=== PATIENT | female | born 1995 | race Caucasian/White ===

== ENCOUNTER 2024-09-21 03:30 | Inpatient (IN) | payer SELFPAY ==
[2024-09-21] VITALS (19 sets, daily range): BP systolic 118–180; BP diastolic 60–95; PULSE 72–99; RESP 15–16; TEMP 36.2–36.6; O2SAT 97–98; BMI 26.8
[2024-09-21 03:35] LABS: Basophils % 0.5 %; Eosinophils # 0.1 10^3/uL (0.0-0.8); Eosinophils % 1.5 %; Hematocrit 38.6 % (36-47); Lymphocytes # 2.1 10^3/uL (0.8-4.8); Lymphocytes % 26.9 %; Mean Corpuscular HGB Conc 32.4 g/dL (30-55); Mean Corpuscular Hemoglobin 28.9 pg (27-33); Mean Corpuscular Volume 89.4 fl (85-98); Mean Platelet Volume 9.7 fL (7.4-10.4); Monocytes # 0.8 10^3/uL (0.2-0.9); Monocytes % 10.2 %; Neutrophils # 4.74 10^3/uL (1.8-7.7); Neutrophils % 59.6 %; Nucleated Red Blood Cells % 0 %; Platelet Count 226 10^3/cmm (157-399); Red Blood Count 4.32 10^6/uL (3.85-5.65); Red Cell Distribution Width 20.6 % (12.1-15.1); White Blood Count 7.95 10^3/uL (3.29-11.43)
[2024-09-21] MEDS: lactated ringers 1,000 ML 999 ML IV (03:42)
[2024-09-21] MEDS: oxytocin 30 UNIT/500 ML BAG 600 UNIT IV (04:24)
--- NOTE | 2024-09-21 04:34 | PM.OPHPUD ---
Labor & Delivery H&P Update Date of Procedure: September 21, 2024 Date H&P Performed: 09/14/24 Admission Diagnosis: Active labor at 41 weeks gestation Planned procedure: Expectant management of labor and delivery
--- NOTE | 2024-09-21 04:35 | PM.DELIVERY ---
Delivery Note: Date of delivery: September 21, 2024 Pre-delivery diagnoses: IUP at 40 weeks 5 days gestation Insufficient care Procedure: Normal spontaneous vaginal delivery Delivering Physician: Juana Larsen MD Estimated blood loss (mL): 200 Pre-Delivery Course: The patient had late onset care starting at 34 weeks gestation at [facility]. labs: A+ antibody negative, hepatitis B nonreactive, hepatitis C nonreactive, HIV nonreactive, rubella immune, GC chlamydia negative, RPR nonreactive, UDS negative, Pap smear ASCUS, hemoglobin A1c 5.0, third trimester anatomy scan within normal limits, she passed her glucose tolerance test, GBS negative. Delivery: This is a 29-year-old G3, P2 at 40 weeks 5 days gestation who presented to labor and delivery in active labor at 7 cm dilated. The patient desired to get an epidural but her labor progressed rather precipitously. 20 minutes after the pt was 8cm, I was notified by nursing that the had already delivered. When I presented the cord was still attached and the was on the mother's chest. The cord was clamped and cut. The placenta was delivered grossly intact and normal to inspection. There were no lacerations. Mother and infant were doing well. weight 3470gms. Apgars 9 and 9. A&P PDMP PDMP Reviewed: Not Reviewed Coding Level of Care Code Acute Code for Chg Fwd
--- NOTE | 2024-09-21 06:22 | PC.NURSE ---
dfs notified due to patient being late to care.
--- OUTSIDE RECORDS SUMMARY | 2024-09-21 08:27 | XMS_ITS | Continuity of Care Document ---
Author Organization [facility] Flor Johnston, [facility] ([facility]) Address [address] [place] [address] Assessment No assessment recorded. Plan of Treatment Reminders Order Date Submit Date Provider Last Modified By Organization Details Last Modified Time Details Appointments None record ed. Lab None record ed. Referral None record ed. Procedures None record ed. Surgeries None record ed. Imaging None record ed. Medication Orders None record ed. Patient TargetsNo targets recorded. Patient InstructionsNo instructions recorded. Reason for Referral None Reported. Results Created Date Observation Date Name Description Value Unit Range Abnormal Flag Note LastModifiedBy Organization Detail LastModifiedTime 08/19/19 25 08/17/2024 US, obste tric, mater nal evalu ation + anato my No observ ation record ed. [email or web address] [facility] [address] [place], [address], 08/25/2024 17:47:37 09/15/19 25 09/10/2024 US, obste tric, follo w-up No observ ation record ed. [email or web address] Not Available 09/15 09:00:00 Result Notes None recorded. Problems Name Problem SNOMED Code Status Onset Date Resolution Date Notes Provider Name and Address Organization Details Recorded Time [id number] Active 025 [place] [facility] Problem Notes None recorded. Procedures Surgical History Date Name Laterality Status Provider Name and Address Organization Details Recorded Time 08/12/2024 Date of Last [facility] Sm[facility] 10:50:02 Imaging Results None recorded. Procedure Notes None recorded. Medical Equipment None Reported. Allergies No known drug allergies Vitals Date Recorded Body height Body mass index (BMI) Body weight Body temperature Oxygen saturation Oxygen saturation in Arterial blood by Pulse oximetry Heart rate Systolic And Diastolic Provider Name and Address Organization Details Last Updated DateTime 165.1 cm 26.6 kg/m2 10135.7 8 g 97.7 [degF] 98 % 98 % 97 /min 120/80 mm[Hg] TOREY GRANADO [facility], [facility] 15:44:53 Social History None recorded. Functional Status None recorded. Mental Status None recorded. Family History Relationship Description Onset Age of this Age Resolved Age Notes LastModified by Organization Details LastModified Time Mother Anemia [email or web address] Not availabl e 08/10/2024 11:04:12 Mother Heart disease [email or web address] Not available 07/27 11:04:22 Maternal Grandfather Hypercholest [email or web address] Not available 07/27 11:04:51 Medical History Condition Response Coronary Artery Disease N Other N Gout N Kidney Stones N Blood Diseases N Hyperthyroidism N Breast Cancer N Blood Transfusion N Depression N COPD N Lung Disease N Hypothyroidism N Developmental or Behavioral Disorders N Defects or Inherited Disease N Breast Problem N Difficulty Swallowing N Anesthesia Complications N Meniere's disease N Anxiety Disorder N Muscle, Joint, or Bone Problems N Vision or Eye Problems N Arthritis N Polyps N Infertility N Cancer N Varicosities N Stroke N Endometriosis N Bladder or Kidney Problems N High Cholesterol N Liver Disease N Headaches N Fibromyalgia N Kidney Disease N Allergies/Hayfever N Heart Problems N Ear or Hearing Problems N Hospitalizations N Thyroid Problems N GI Problems N ADD/ADHD N Skin Problems N Eating Disorder N Anemia N Constipation N Mental Illness N Ovarian Cancer N Diabetes N Bedwetting N Seizures/Epilepsy N Tuberculosis N Eczema N Diverticulitis N Abuse/Domestic Violence N Asthma N Reflux/GERD N Hepatitis N Heart Disease N Pulmonary Embolism N Pre-Eclampsia N Hypertension N Chronic Ear Infections N Osteoporosis N Chicken Pox N Autism Spectrum Disorder (ASD) N Thrombophilias N Gynecological History Statement/Question Response Date of Last Pap Smear 08/12/2024 Obstetrics History GPAL:G 3 P 2 0 0 2 Type Value Full Term 2 Spontaneous 0 Living 2 Total 3 Past Encounters Encounter ID Performer Location Encounter Start Date Encounter Closed Date Diagnosis/Indication Diagnosis SNOMED-CT Code Diagnosis ICD10 Code Diagnosis Note [id number] Juana Larsen MD [facility] ([facility]) [address] [place] [address] [phone] 08/17/2024 14:55:35 08/18/2024 12:29:47 [id number] Juana Larsen MD [facility] ([facility]) [address] [place] [address] [phone] 08/24/2024 14:17:56 08/28/2024 07:06:03 Gestation period, 36 weeks 10539614 Z3A.36 Multigravida 761056292 Z 34.83 Insufficie nt care 1590533086 109 O09.33 growth 9 days behind expected SUSANNAH. Due to limited care we have no way of verifying if this is appropriat e growth. I recommend if she still in 2 more weeks we obtain a 3-week follow-up ultrasound . 08/24/2024 Atypical s quamous cells of undetermined significance on cervical Papanicolaou smear 538799236 R87.610 Patient was informed that her Pap smear was ASCUS with negative high risk HPV. I advised the patient to follow-up with a repeat Pap smear in 1 year. This is more frequent the guidelines suggest however I have seen some discrepanc ies with HPV viral detection. Patient expressed understand ing. 08/24/2024 [id number] Juana Larsen MD [facility] ([facility]) [address] [place] [address] [phone] 08/31/2024 14:20:29 09/01/2024 10:49:59 Gestation period, 37 weeks 85602994 Z3A.37 Multigravida 045124447 Z 34.83 Acute cystitis 82057895 N30.00 3+ leuk on dip today. pt would like to await culture before taking abx. [id number] Juana Larsen MD [facility] ([facility]) [address] [place] [address] [phone] 09/07/2024 14:49:35 09/09/2024 07:48:16 Gestation period, 38 weeks 80913167 Z3A.38 Multigravida 949787524 Z 34.83 [id number] Juana Larsen MD [facility] ([facility]) [address] [place] [address] [phone] 09/08/2024 14:46:28 09/09/2024 12:17:10 [id number] Juana Larsen MD [facility] ([facility]) [address] [place] [address] [phone] 09/14/2024 15:21:18 09/16/2024 12:03:48 Gestation period, 39 weeks 11824303 Z3A.39 Multigravida 820840093 Z 34.83 Health Concerns Section Related Observation LastModified by Organization Detai ls LastModified Time None Recorded Concern Status LastModified by Organization Details LastModified Time None Recorded Payers Encounter Date Sequence Insurance Name Policy Number Policy Jackson Covered Member ID Jackson Member ID Guarantor Name 09/14/2024 1 *SELF PAY* Argentina Chauhan Notes Date Note Type Note Provider Name and Address Organization Details Recorded Time 09/14/2024 text/html jr ob routineRep orted bypatient.Associated Symptoms:normal movement; no bleeding; no dysuria; no emesis; no dizziness;abdominal pain;cramping;contrac tions;nausea;constipa tion;edema;headache Juana Larsen MD [address] [place] [address], [phone], [facility], [facility] 09/14/2024 16:14:47 OBGyn Episode Ob Episode Information Episode Created Date Number of Fetuses Patient Bloodtype Patient rh Status Prepregnancy Weight lbs Domestic Partner Domestic Partner Phone Father Name Resident Care Technician Status 08/11/19 25 1 A Positive Juanpablo gonzales OPEN Fetus Data First Name Last Name Admitted to NICU Weight (g) Sex Living Outcome Pediatric Complications Fetus ID Race Codes Race Delivery Type [id number] Susannah Calculation Initial Susannah Date Initial Exam Date Initial Exam Provider Initial Ultrasound Date Last Menstrual Period Date Ultra Sound Weeks Gestation 09/16/2024 08/10/2024 12/11/2023 0 Eighteen To Twenty Week Susannah Update Ultra Sound Date Fundal Height At Umbil Quickening Date Ultra Sound Latest Weeks Gestation Final Susannah Confirmed By Final Susannah Confirmed Date Final Susannah Date Ultra Sound Latest Days Gestation 0 0 Pre-nay Flowsheet Flowsheet Date 08/10/2024 [place] Score Blood Edema Fundus Height Fundus Units Glucose Ketones Leukocytes Nitrite Labor Signs Protein Cervic Dilation Cervic Effacement Cervic Station 31 cm none 2+ 1+ Type Weight in lbs Pre/Post Dialysis Refused Weight 155.632243579085 BP Diastolic BP Location Tested BP Systolic BP Type 78 130 Fetus Heart Rate Present A 145 Fetus Movement A Yes Comments Both previous pregnancies pt . was anemic. Flowsheet Date 08/12/2024 [place] Score Blood Edema Fundus Height Fundus Units Glucose Ketones Leukocytes Nitrite Labor Signs Protein Cervic Dilation Cervic Effacement Cervic Station 34 cm Type Weight in lbs Pre/Post Dialysis Refused Weight 156.339519434073 BP Diastolic BP Location Tested BP Systolic BP Type 80 116 Fetus Heart Rate Present A 145 Fetus Movement A Yes Comments LATE care. pt decli arnol Tdap and RSV (does not do vaccines). Flowsheet Date 08/17/2024 [place] Score Blood Edema Fundus Height Fundus Units Glucose Ketones Leukocytes Nitrite Labor Signs Protein Cervic Dilation Cervic Effacement Cervic Station Type Weight in lbs Pre/Post Dialysis Refused BP Diastolic BP Location Tested BP Systolic BP Type Fetus Heart Rate Present Fetus Movement Comments Flowsheet Date 08/24/2024 [place] Score Blood Edema Fundus Height Fundus Units Glucose Ketones Leukocytes Nitrite Labor Signs Protein Cervic Dilation Cervic Effacement Cervic Station 35 cm none trace trace Type Weight in lbs Pre/Post Dialysis Refused Weight 159.952858340877 BP Diastolic BP Location Tested BP Systolic BP Type 80 118 Fetus Heart Rate Present A 145 Fetus Movement A Yes Comments GBS and Cytotec done today. Flowsheet Date 08/31/2024 [place] Score Blood Edema Fundus Height Fundus Units Glucose Ketones Leukocytes Nitrite Labor Signs Protein Cervic Dilation Cervic Effacement Cervic Station 36 cm none 3+ trace Type Weight in lbs Pre/Post Dialysis Refused Weight 157.749694942968 BP Diastolic BP Location Tested BP Systolic BP Type 70 120 Fetus Heart Rate Present A 140 Fetus Movement A Yes Comments No BC or tubal after baby. D oes not know what she is having. Flowsheet Date 09/07/2024 [place] Score Blood Edema Fundus Height Fundus Units Glucose Ketones Leukocytes Nitrite Labor Signs Protein Cervic Dilation Cervic Effacement Cervic Station 35 cm none trace trace Type Weight in lbs Pre/Post Dialysis Refused Weight 158.202564340424 BP Diastolic BP Location Tested BP Systolic BP Type 70 115 Fetus Heart Rate Present A 125 Fetus Movement A Yes Comments growth u/s tomorrow. No circ if baby boy. Boy, Khanh, Girl, Genevieve. Flowsheet Date 09/08/2024 [place] Score Blood Edema Fundus Height Fundus Units Glucose Ketones Leukocytes Nitrite Labor Signs Protein Cervic Dilation Cervic Effacement Cervic Station Type Weight in lbs Pre/Post Dialysis Refused BP Diastolic BP Location Tested BP Systolic BP Type Fetus Heart Rate Present Fetus Movement Comments Flowsheet Date 09/14/2024 [place] Score Blood Edema Fundus Height Fundus Units Glucose Ketones Leukocytes Nitrite Labor Signs Protein Cervic Dilation Cervic Effacement Cervic Station 36 cm none 2+ 1+ 4cm 50% -2 Type Weight in lbs Pre/Post Dialysis Refused Weight 160.571782817413 BP Diastolic BP Location Tested BP Systolic BP Type 80 120 Fetus Heart Rate Present A 155 Fetus Movement A Yes Comments Menstrual History Last Menstrual Date Menses Monthly On Bcp Conception Prior Menses Frequency Hcg Plus Date Menarche Onset Age 0812/11/2023 true Genetic Screening And Infection History Question Response Note Patient's Age Will Be 35 Yea rs Or Older At Estimated Date of Delivery false Thalassemia (Luxembourgish, Italian, Mediterranean, Or Background): MCV < 80 false Neural Tube Defect (Meningom yelocele, Spina Bifida, Or Anencephaly) false Congenital Heart Defect false Down Syndrome false Ryan-Sachs (eg, Cheondoism, Cajun , [place]) false Siva Disease false Sickle Cell Disease Or Trait () false Hemophilia Or Other Blood Disorders true anamia. Pt. had low iron the last 2 . Muscular Dystrophy false Cystic Fibrosis false [place]'s Chorea false Intellectual Disability/Autism false If Yes, Was Person Tested For Fragile X? false Other Inherited Genetic Or C hromosomal Disorder false Maternal Metabolic Disorder (eg, Type 1 Diabetes, PKU) false Patient Or Baby's Father Had A Child With Defects Not Listed Above false Recurrent Loss, Or A Stillbirth false Medications (including Suppl ements, Vitamins, Herbs, OTC Drugs), Illicit/Recreational Drugs, Alcohol false If Yes, Agent(s) And Strength/Dosage false Any Other Genetic History false Live With Someone With TB Or Exposed To TB false Patient Or Partner Has Histo ry Of Genital Herpes false Rash Or Viral Illness Since Last Menstrual Period false History Of STD, Gonorrhea, C hlamydia, HPV, Syphilis false Other Infection History false History of HIV false History of Hepatitis false Prior GBS-infected child false Hemoglobinopathy Or Carrier false Other Structural Defect false Recent Travel History Outside of Country false Mental Retardation/Autism false Delivery Information Delivery Date Delivery Type Labor Anesthesia Weeks Gestation Incision Type Labor Labor Length Hrs Delivered By Post Complications Tubal Sterilization Discharge Date Comments Discharge Information Feeding Method Contraceptive Method Maternal HG B and HCT Levels
--- OUTSIDE RECORDS SUMMARY | 2024-09-21 08:27 | XMS_ITS | Patient Health Record ---
Author Organization [facility] Address [address] [place] [address] Care Team Providers Care Electronics Lead Name Role Phone Breana Vasquez [phone] Allergies No Known Allergies Reason For Referral No Information Immunizations Vaccine Route Administration Date Status Comme nts Tdap (without savings counselor) IM Intramuscular 01/04/2022 Adminis tered Plan Of Treatment No Information Insurance Providers Payer Name Payer Address Payer Phone Subscriber Number Group Number Insured Name Patient Relationship to Insured Coverage Start Date Coverage End Date [place] [employer] [address] [facility] [address] [place] [address] [phone] [id number] EDUARDO HENDERSON Self - patient is the insured Medical (General) History Medical History History ICD Code scoliosis Surgical History Surgery Date(Month/Year) Excision of thyroid nodules
--- OUTSIDE RECORDS SUMMARY | 2024-09-21 08:27 | XMS_ITS | Data Portability ---
Author Organization [facility] Flor Johnston [facility] Address [address] [address] Assessment No assessment recorded. Plan of Treatment Reminders Order Date Submit Date Provider Last Modified By Organization Details Last Modified Time Details Appointments None recorded. Lab culture, urine 2024 [email or web address] [facility], [address] [place] [address], [facility] [address], [place], [address], 21:28:58 streptococc us group B, culture, unspecified specimen 2024 025 sli.do [facility], [address] [place] [address], [facility] [address], [place], [address], 09:53:34 Referral None recorded. Procedures None recorded. Surgeries None recorded. Imaging US, obstetric, follow-up - [id number] [address], [address] [place], [address], 14:57:27 Medication Orders None recorded. Patient TargetsNo targets recorded. Patient InstructionsNo instructions recorded. Reason for Referral None Reported. Results Created Date Observation Date Name Description Value Unit Range Abnormal Flag Note LastModifiedBy Organization Detail LastModifiedTime 08/13/1908/14/2024 URINA LYSIS , COMPL ETE color YELLOW yellow normal Not Available [facility] [address], [place], [address], 08/14/2024 06:20:57 08/13/19 25 08/14/2024 URINA LYSIS , COMPL ETE appearance CLEAR clear normal Not Available [address], [address], 08/14/2024 06:20:57 08/13/19 25 08/14/2024 URINA LYSIS , COMPL ETE specific gravity 1.014 1.001- 1.035 normal Not Available [address], [address], 08/14/2024 06:20:57 08/13/19 25 08/14/2024 URINA LYSIS , COMPL ETE pH 6.5 5.0-8. 0 normal Not Available [address], [address], 08/14/2024 06:20:57 08/13/19 25 08/14/2024 URINA LYSIS , COMPL ETE glucose 2+ negati ve abnormal Not Available [address], [address], 08/14/2024 06:20:57 08/13/19 25 08/14/2024 URINA LYSIS , COMPL ETE bilirubin NEGATI VE negati ve normal Not Available [address], [address], 08/14/2024 06:20:57 08/13/19 25 08/14/2024 URINA LYSIS , COMPL ETE ketones NEGATI VE negati ve normal Not Available [facility] [address], [address], 08/14/2024 06:20:57 08/13/19 25 08/14/2024 URINA LYSIS , COMPL ETE occult blood NEGATI VE negati ve normal Not Available [facility] [address], [address], 08/14/2024 06:20:57 08/13/19 25 08/14/2024 URINA LYSIS , COMPL ETE protein NEGATI VE negati ve normal Not Available [address], [address], 08/14/2024 06:20:57 08/13/19 25 08/14/2024 URINA LYSIS , COMPL ETE nitrite NEGATI VE negati ve normal Not Available [address], [address], 08/14/2024 06:20:57 08/13/19 25 08/14/2024 URINA LYSIS , COMPL ETE leukocyte esterase TRACE negati ve abnormal Not Available [address], [address], 08/14/2024 06:20:57 08/13/19 25 08/14/2024 URINA LYSIS , COMPL ETE WBC NONE SEEN /hpf < or = 5 normal Not Available [address], [address], 08/14/2024 06:20:57 08/13/19 25 08/14/2024 URINA LYSIS , COMPL ETE RBC NONE SEEN /hpf < or = 2 normal Not Available [address], [address], 08/14/2024 06:20:57 08/13/19 25 08/14/2024 URINA LYSIS , COMPL ETE squamous epithelial cells 0-5 /hpf < or = 5 Not Available [address], [address], 08/14/2024 06:20:57 08/13/19 25 08/14/2024 URINA LYSIS , COMPL ETE bacteria NONE SEEN /hpf none seen normal Not Available [address], [address], 08/14/2024 06:20:57 08/13/19 25 08/14/2024 URINA LYSIS , COMPL ETE hyaline cast NONE SEEN /lpf none seen normal Not Available [facility] - [address], [address], 08/14/2024 06:20:57 08/13/19 25 08/14/2024 URINA LYSIS , COMPL ETE note This urine was librado zed for the prese nce of WBC, RBC, bacte thalia, casts , and other forme d eleme nts. Only those eleme nts seen were repor sujatha. Not Available [facility] - [address], [address], 08/14/2024 06:20:57 08/13/19 25 08/14/2024 CHLAM YDIA/ N.JEFFY ORRHO EAE AND T. VAGIN DOROTEO RNA, QL TMA chlamydia trachomatis RNA, tma, urogenital NOT DETECT ED not detect ed normal Not Available [facility] [address], [address], 08/14/2024 06:20:59 08/13/19 25 08/14/2024 CHLAM YDIA/ N.JEFFY ORRHO EAE AND T. VAGIN DOROTEO RNA, QL TMA neisseria gonorrhoeae RNA, tma, urogenital NOT DETECT ED not detect ed normal Not Available [facility] [address], [address], 08/14/2024 06:20:59 08/13/1908/14/2024 CHLAM YDIA/ N.JEFFY ORRHO EAE AND T. VAGIN DOROTEO RNA, QL TMA comment The librado tical perfo rmanc e alexander cteri stics of this assay , when used to test SureP ath(T M) speci mens have been deter mined by [facility]. The modif icati ons have not been clear ed or appro sharla by the FDA. This assay has been valid ated pursu ant to the CLIA regul ation s and is used for clini leroy purpo ses. For addit ional infor silvino weems e refer to https ://ed ucati on.qu domenicdi Sequella. com/f aq/FA Q154 (This link is being provi ded for infor matio n/ educa azael l purpo ses only. ) Not Available [address], [place], [address], 08/14/2024 06:20:59 08/13/19 25 08/14/2024 CHLAM YDIA/ N.JEFFY ORRHO EAE AND T. VAGIN DOROTEO RNA, QL TMA trichomonas vaginalis RNA, ql tma NOT DETECT ED not detect ed normal For addit ional infor silvino weems e refer to http: //fabi cordon stdia gnost ics.c om/ faq/T ace vasquez tma (This link is being provi ded for infor matio nal/ educa azael l purpo ses only. ) Not Available [facility] [address], [place], [address], 08/14/2024 06:20:59 08/13/1908/14/2024 DRUG MONIT OR, PANEL 1, SCREE N, URINE amphetamines NEGATI VE NG/mL <500 See Note A See Note A Not Available [address], [place], [address], 08/14/2024 06:21:00 08/13/1908/14/2024 DRUG MONIT OR, PANEL 1, SCREE N, URINE barbiturates NEGATI VE NG/mL <300 See Note A See Note A Not Available [facility] [address], [place], [address], 08/14/2024 06:21:00 08/13/1908/14/2024 DRUG MONIT OR, PANEL 1, SCREE N, URINE benzodiazepi arnol NEGATI VE NG/mL <100 See Note A See Note A Not Available [facility] [address], [place], [address], 08/14/2024 06:21:00 08/13/19 08/14/2024 DRUG MONIT OR, PANEL 1, SCREE N, URINE cocaine metabolite NEGATI VE NG/mL <150 See Note A See Note A Not Available [address], [place], [address], 08/14/2024 06:21:00 08/13/19 25 08/14/2024 DRUG MONIT OR, PANEL 1, SCREE N, URINE marijuana metabolite NEGATI VE NG/mL <20 See Note A See Note A Not Available [address], [place], [address], 08/14/2024 06:21:00 08/13/1908/14/2024 DRUG MONIT OR, PANEL 1, SCREE N, URINE methadone metabolite NEGATI VE NG/mL <100 See Note A See Note A Not Available [address], [place], [address], 08/14/2024 06:21:00 08/13/1908/14/2024 DRUG MONIT OR, PANEL 1, SCREE N, URINE opiates NEGATI VE NG/mL <100 See Note A See Note A Not Available [facility] [address], [place], [address], 08/14/2024 06:21:00 08/13/1908/14/2024 DRUG MONIT OR, PANEL 1, SCREE N, URINE oxycodone NEGATI VE NG/mL <100 See Note A See Note A Not Available [facility] [address], [place], [address], 08/14/2024 06:21:00 08/13/1908/14/2024 DRUG MONIT OR, PANEL 1, SCREE N, URINE phencyclidin e NEGATI VE NG/mL <25 See Note A See Note A Not Available [address], [place], [address], 08/14/2024 06:21:00 08/13/19 25 08/14/2024 DRUG MONIT OR, PANEL 1, SCREE N, URINE creatinine 58.2 mg/dL > or = 20.0 Not Available [address] [address] [place], [address], 08/14/2024 06:21:00 08/13/1908/14/2024 DRUG MONIT OR, PANEL 1, SCREE N, URINE pH 7.2 4.5-9. 0 Not Available [address] [place], [address], 08/14/2024 06:21:00 08/13/1908/14/2024 DRUG MONIT OR, PANEL 1, SCREE N, URINE oxidant NEGATI VE mcg/m L <200 Not Available [address] [address] [place], [address], 08/14/2024 06:21:00 08/13/1908/14/2024 DRUG MONIT ORING TEMPL ATE notes and comments This drug testi ng is for medic al treat ment only. Librado sis was perfo rmed as non-f orens ic testi ng and these resul ts shoul d be used only by [facility] provi ders to rende r diagn osis or treat ment, or to monit or progr ess of medic al condi tions . Note A: The resul ts are presu mptiv e; based only on chevy spain ds, and they have not been confi rmed by a defin itive methbarbara marshall. [facility] Provi ders needi ng Inter preta tion lee tance , pleas e conta ct us at 1.877 .40.R XTOX (1.87 [phone] ) M-F, 8am to 10pm EST Not Available [address] , [place], [address], 08/14/2024 06:21:01 08/13/1908/14/2024 CULTU RE, URINE , ROUTI NE culture, urine, routine SEE NOTE CULTU RE, URINE , ROUTI NE Micro Numbe r: [id number] Test Statu s: Final Speci men Sourc e: Urine , clean catch Speci men Quali ty: Adequ ate Resul t: Less than 10,00 0 CFU/m L of singl e Gram posit jeremías organ ism isola sujatha. No furth er testi ng will be perfo rmed. If clini felicia indic ated, recol lecti on using a metho d to minim ize conta minat ion, with promp t trans feli to Urine Cultu re Trans port Tube, is recom nate d. Not Available [address] [place], [address], 08/14/2024 06:21:02 08/13/19 25 08/19/2024 THINP REP TIS PAP REFL HPV (IF ASCUS ,+) RFL GENOT clinical information: normal Pregn ant Not Available [address], [address], 08/19/2024 08:36:15 08/13/19 25 08/19/2024 THINP REP TIS PAP REFL HPV (IF ASCUS ,+) RFL GENOT LMP: normal NA Not Available [address], [address], 08/19/2024 08:36:15 08/13/19 25 08/19/2024 THINP REP TIS PAP REFL HPV (IF ASCUS ,+) RFL GENOT prev. Pap: normal NA Not Available [address], [address], 08/19/2024 08:36:15 08/13/19 25 08/19/2024 THINP REP TIS PAP REFL HPV (IF ASCUS ,+) RFL GENOT prev. BX: normal NA Not Available [address], [address], 08/19/2024 08:36:15 08/13/19 25 08/19/2024 THINP REP TIS PAP REFL HPV (IF ASCUS ,+) RFL GENOT source: normal Cervi x, Endoc ervix Not Available [address] [place], [address], 08/19/2024 08:36:15 08/13/19 25 08/19/2024 THINP REP TIS PAP REFL HPV (IF ASCUS ,+) RFL GENOT statement of adequacy: normal Satis facto ry for evalu ation . Endoc ervic al/tr ansfo rmati on zone compo nent prese nt. Not Available [address] , [place], [address], 08/19/2024 08:36:15 08/13/1908/19/2024 THINP REP TIS PAP REFL HPV (IF ASCUS ,+) RFL GENOT general categorizati on: abnormal Cytol ogy Resul ts: Epith elial Cell Abnor malit y Not Available [facility] [address] [address] [place], [address], 08/19/2024 08:36:15 08/13/19 25 08/19/2024 THINP REP TIS PAP REFL HPV (IF ASCUS ,+) RFL GENOT interpretati on/result: abnormal Atypi leroy Squam ous Cells of Undet ermin ed Signi fican ce (ASC- US) Not Available [address] [address] [place], [address], 08/19/2024 08:36:15 08/13/19 25 08/19/2024 THINP REP TIS PAP REFL HPV (IF ASCUS ,+) RFL GENOT comment: normal This Pap test has been evalu ated with compu ter lee sujatha techn ology . Sugge st clini leroy corre latio n and follo w-up as clini felicia appro priat e Not Available [address] [place], [address], 08/19/2024 08:36:15 08/13/19 25 08/19/2024 THINP REP TIS PAP REFL HPV (IF ASCUS ,+) RFL GENOT cytotechnolo gist: normal TMK, CT( CP) CT scree susan locat ion: [facility] [address] [address] [place] [address] Not Available [facility] [address] [address] [place], [address], 08/19/2024 08:36:15 08/13/19 25 08/19/2024 THINP REP TIS PAP REFL HPV (IF ASCUS ,+) RFL GENOT pathologist: normal Sylwia ortega M.D., Board Certi fied in Anato rupinder Patho logy and Cytop athol ogy. Phone : [phone] (elec troni c signa tursolomon) Not Available [facility] [address] [address] [place], [address], 08/19/2024 08:36:15 08/13/19 25 08/19/2024 THINP REP TIS PAP REFL HPV (IF ASCUS ,+) RFL GENOT comment EXPLA NATOR Y NOTE: The Pap is a scree susan test for cervi leroy cance r. It is not a diagn ostic test and is subje ct to false negat jeremías and false posit jeremías resul ts. It is most relia ble when a satis facto ry sampl e, regul carmen obtai erica, is submi tted with relev ant clini leroy findi ngs and histo ry, and when the Pap resul t is evalu ated along with histo danna and curre nt clini leroy infor matio n. Not Available [facility] [address], [place], [address], 08/19/2024 08:36:15 08/13/19 25 08/19/2024 HPV MRNA E6/E7 REFLE X TO HPV 16, 18/45 HPV MRNA E6/E7 Not Detect ed not detect ed normal Metho dolog y: Trans cript ion-M ediat ed Ampli ficat ion This assay detec ts E6/E7 viral messe nger RNA (mRNA ) from 14 high- risk HPV types (16,1 8,31, 33,35 ,39,4 5,51, 52,56 ,58,5 9,66, 68). Cervi leroy sourc es are requi red for HPV testi ng. If a vagin al sourc e from a patie nt who has had a total hyste recto my with remov al of cervi x was submi tted, pleas e conta ct the testi ng labor atory for alter nativ e testi ng optio ns. For addit ional infor silvino weems e refer to http: //[facility] vicenta asher.galen stdia gnost ics.c om/fa q/FAQ 129v1 (This link if provi ded for infor gabbi asher/ pilo ortega purpo ses only. ) Not Available [facility] [address] [place], [address], 08/19/2024 08:36:17 08/13/19 25 08/12/2024 chilo wet prep Whiff negati ve Not Available [facility] ([facility]) [address] [place] [address], [address], 08/12/2024 08:04:27 08/13/19 25 08/12/2024 chilo wet prep Epi 40-50 Not Available [facility] ([facility]) [address] [place] [address], [address], 08/12/2024 08:04:27 08/13/19 25 08/12/2024 chilo wet prep WBC 25-30 Not Available [facility] ([facility]) [address] [place], [address], 08/12/2024 08:04:27 08/13/19 25 08/12/2024 chilo wet prep RBC 3-4 Not Available [facility] ([facility]) [address] [place] [address], [address], 08/12/2024 08:04:27 08/13/19 25 08/12/2024 chilo wet prep Bacteria 1+ mixed jose manuel Not Available [facility] ([facility]) [address] [place], [address], 08/12/2024 08:04:27 08/13/19 25 08/12/2024 chilo wet prep Fungus None Not Available [facility] ([facility]) [address] [place], [address], 08/12/2024 08:04:27 08/13/19 25 08/12/2024 chilo wet prep Clue Cells negati ve Not Available [facility] ([facility]) [address] [place], [address], 08/12/2024 08:04:27 08/13/19 25 08/12/2024 chilo wet prep Other Not Available [facility] ([facility]) [address] [place], [address], 08/12/2024 08:04:27 08/18/19 25 08/18/2024 CBC (INCL UDES DIFF/ PLT) white blood cell count 8.3 thous and/u L 3.8-10 .8 normal Not Available [address], [address], 08/18/2024 16:01:35 08/18/19 25 08/18/2024 CBC (INCL UDES DIFF/ PLT) red blood cell count 4.22 anastasia on/uL 3.80-5 .10 normal Not Available [facility] [address] [address] [place], [address], 08/18/2024 16:01:35 08/18/19 25 08/18/2024 CBC (INCL UDES DIFF/ PLT) hemoglobin 11.3 g/dL 11.7-1 5.5 low Not Available [address], [address], 08/18/2024 16:01:35 08/18/19 25 08/18/2024 CBC (INCL UDES DIFF/ PLT) hematocrit 35.5 % 35.0-4 5.0 normal Not Available [address], [address], 08/18/2024 16:01:35 08/18/19 25 08/18/2024 CBC (INCL UDES DIFF/ PLT) MCV 84.1 fL 80.0-1 00.0 normal Not Available [address], [address], 08/18/2024 16:01:35 08/18/19 25 08/18/2024 CBC (INCL UDES DIFF/ PLT) MCH 26.8 pg 27.0-3 3.0 low Not Available [address], [address], 08/18/2024 16:01:35 08/18/19 25 08/18/2024 CBC (INCL UDES DIFF/ PLT) MCHC 31.8 g/dL 32.0-3 6.0 low For adult s, a sligh t decre ase in the calcu lated MCHC value (in the range of 30 to 32 g/dL) is most likel y not clini felicia signi fican t; marco er, it shoul d be inter prete d with cauti on in corre lat n with other red cell rukhsana eters and the patie nt's clini leroy condi tion. Not Available [address], [address], 08/18/2024 16:01:35 08/18/19 25 08/18/2024 CBC (INCL UDES DIFF/ PLT) RDW 18.4 % 11.0-1 5.0 high Not Available [address], [address], 08/18/2024 16:01:35 08/18/19 25 08/18/2024 CBC (INCL UDES DIFF/ PLT) platelet count 265 thous and/u L 140-40 0 normal Not Available [address], [address], 08/18/2024 16:01:35 08/18/19 25 08/18/2024 CBC (INCL UDES DIFF/ PLT) MPV 10.3 fL 7.5-12 .5 normal Not Available [address], [address], 08/18/2024 16:01:35 08/18/19 25 08/18/2024 CBC (INCL UDES DIFF/ PLT) absolute neutrophils 5627 cells /uL 1500-7 800 normal Not Available [address], [address], 08/18/2024 16:01:35 08/18/19 25 08/18/2024 CBC (INCL UDES DIFF/ PLT) absolute lymphocytes 1594 cells /uL 850-39 00 normal Not Available [address], [address], 08/18/2024 16:01:35 08/18/19 25 08/18/2024 CBC (INCL UDES DIFF/ PLT) absolute monocytes 855 cells /uL 200-95 0 normal Not Available [address], [address], 08/18/2024 16:01:35 08/18/19 25 08/18/2024 CBC (INCL UDES DIFF/ PLT) absolute eosinophils 183 cells /uL 15-500 normal Not Available [address], [address], 08/18/2024 16:01:35 08/18/19 25 08/18/2024 CBC (INCL UDES DIFF/ PLT) absolute basophils 42 cells /uL 0-200 normal Not Available [address], [address], 08/18/2024 16:01:35 08/18/19 25 08/18/2024 CBC (INCL UDES DIFF/ PLT) neutrophils 67.8 % normal Not Available [address], [address], 08/18/2024 16:01:35 08/18/19 25 08/18/2024 CBC (INCL UDES DIFF/ PLT) lymphocytes 19.2 % normal Not Available [address], [address], 08/18/2024 16:01:35 08/18/19 25 08/18/2024 CBC (INCL UDES DIFF/ PLT) monocytes 10.3 % normal Not Available [address], [address], 08/18/2024 16:01:35 08/18/19 25 08/18/2024 CBC (INCL UDES DIFF/ PLT) eosinophils 2.2 % normal Not Available [address], [address], 08/18/2024 16:01:35 08/18/19 25 08/18/2024 CBC (INCL UDES DIFF/ PLT) basophils 0.5 % normal Not Available [address], [address], 08/18/2024 16:01:35 08/18/19 25 08/18/2024 HEPAT ITIS B SURFA CE ANTIG EN W/REF L CONFI RM hepatitis B surface antigen NON-RE ACTIVE non-re active normal For addit ional infor silvino weems e refer to http: //fabi patelque stdia gnost ics.c om/fa q/FAQ (This link is being provi ded for infor gabbi lawrence/ educa azael l purpo ses only. ) Not Available [address], [address], 08/18/2024 16:01:37 08/18/19 25 08/18/2024 HEPAT ITIS C AB W/REF L TO HCV RNA, QN, PCR hepatitis C antibody NON-RE ACTIVE non-re active normal HCV antib dayday was non-r eacti ve. There is no labor atory evide nce of HCV infec tion. In most cases , no furth er actio n is requi red. Howev er, if recen t HCV expos ure is suspe cted, a test for HCV RNA (test code 43994 ) is sugge sted. For addit ional infor gabbi dubois e refer to http: //[facility] vicenta patelque stdia gnost ics.c om/fa q/FAQ 22v1 (This link is being provi ded for infor gabbi lawrence/ educa azael l purpo ses only. ) Not Available [facility] [address] [address] [place], [address], 08/18/2024 16:01:38 08/18/19 25 08/18/2024 RUBEL LA AB (IGG) , IMMUN E STATU S rubella Ab (IgG), immune status 4.40 index normal Index Inter preta tion ----- ----- ----- ---- <0.90 Not consi stent with immun ity 0.90- 0.99 Equiv ocal > or = 1.00 Consi stent with immun ity The prese nce of rubel la IgG antib dayday sugge sts immun izati on or past or curre nt infec tion with rubel la virus . Not Available [facility] [address] [place], [address], 08/18/2024 16:01:39 08/18/1908/18/2024 HIV 1/2 ANTIG EN/AN TIBOD Y,FOU RTH GENER ATION W/RFL HIV Ag/Ab, 4TH gen NON-RE ACTIVE non-re active normal HIV-1 antig en and HIV-1 /HIV- 2 antib odies were not detec sujatha. There is no labor atory evide nce of HIV infec tion. PLEAS E NOTE: This infor matio n has been discl osed to you from recor ds whose confi denti ality may be prote cted by state law. If your state requi res such prote ction , then the state law prohi bits you from lisa wallace any furth er discl osure of the infor matio n witho ut the speci fic writt en conse nt of the perso n to whom it perta ins, or as other french permi tted by law. A gener al autho rizat ion for the relea se of medic al or other infor matio n is NOT suffi cient for this purpo se. For addit ional infor matio n pleas e refer to http: //[facility] vicenta cordon stdia gnost ics.c om/fa q/FAQ 106 (This link is being provi ded for infor matio nal/ educa azael l purpo ses only. ) The perfo rmanc e of this assay has not been clini felicia valid ated in patie nts less than 2 years old. Not Available [facility] [address] [place], [address], 08/18/2024 16:01:40 08/18/19 25 08/18/2024 HEMOG LOBIN A1C hemoglobin A1C 5.0 % <5.7 normal For the purpo se of chevy davis for the prese nce of diabe kelby: <5.7% Consi stent with the absen ce of diabe kelby 5.7-6 .4% Consi stent with incre ased risk for diabe kelby (pred iabet es) > or =6.5% Consi stent with diabe kelby This assay resul t is consi stent with a decre ased risk of diabe kelby. Curre ntly, no conse nsus exist dalila sterling use of hemog lobin A1c for diagn osis of diabe kelby in child joy. Accor hallie to Ameri can Diabe kelby Assoc iatio n (ADA) guide lines , hemog lobin A1c <7.0% repre sents optim al contr ol in non-p regna nt diabe tic patie nts. Diffe rent metri cs may apply to speci fic patie nt popul ation s. Stand ards of Medic al Care in Diabe kelby(A DA). Not Available [facility] [address] [address] [place], [address], 08/18/2024 16:01:42 08/18/19 25 08/18/2024 RPR (DX) W/REF L TITER AND T. PALLI DUM AB, IA RPR (DX) w/refl titer and confirmatory testing NON-RE ACTIVE non-re active normal No labor atory evide nce of syphi lis. If recen t expos ure is suspe cted, submi t a new sampl e in 2-4 weeks . Not Available [facility] [address] [place], [address], 08/18/2024 16:01:43 08/18/19 25 08/18/2024 ANTIB DAYDAY SCREE N, RBC W/REF L ID, TITER AND AG antibody screen, RBC w/refl id, titer and Ag NO ANTIBO DIES DETECT ED normal Refer ence range No antib odies detec sujatha This assay is a scree susan test for the detec tion of red blood cell antib odies . The test is not to be used for pretr ansfu jonah scree susan or for the medic al manag ement of an alloi mmuni zed pregn stacy. Not Available [facility] [address], [place], [address], 08/18/2024 16:01:44 08/18/19 25 08/18/2024 ABO GROUP AND RH TYPE ABO group A Not Available [facility] [address] [address] [place], [address], 08/18/2024 16:01:45 08/18/19 25 08/18/2024 ABO GROUP AND RH TYPE Rh type RH(D) POSITI VE For addit ional infor silvino weems e refer to http: //fabi asher.Galen stDia gnost ics.c om/fa q/FAQ 111 (This link is being provi ded for infor matio nal/ educa azael l purpo ses only. ) Not Available [address] [address] [place], [address], 08/18/2024 16:01:45 08/25/19 25 08/27/2024 STREP TOCOC CUS, GROUP B CULTU RE streptococcu s, group B culture SEE NOTE STREP TOCOC CUS, GROUP B CULTU RE Micro Numbe r: [id number] Test Statu s: Final Speci men Sourc e: Vagin al/an orect al Speci men Quali ty: Adequ ate Resul t: No group B Strep tococ cus isola sujatha Note per CDC guide lines optim al recov yan is achie sharla by swabb ing both the lower vagin a and rectu m (thro ugh the anal sphin cter) . Not Available [address] [address] [place], [address], 08/27/2024 09:53:34 09/01/19 25 09/01/2024 CULTU RE, URINE , ROUTI NE culture, urine, routine SEE NOTE CULTU RE, URINE , ROUTI NE Micro Numbe r: [id number] Test Statu s: Final Speci men Sourc e: Urine Speci men Quali ty: Adequ ate Resul t: No Growt h Not Available [address] [address] [place], [address], 09/01/2024 21:28:58 08/19/19 25 08/17/2024 US, obste tric, mater nal evalu ation + anato my No observ ation record ed. [email or web address] [facility] [address] [place], [address], 08/25/2024 17:47:37 09/15/19 25 09/10/2024 US, obste tric, follo w-up No observ ation record ed. Not Available 09/15 09:00:00 Result Notes None recorded. Problems Name Problem SNOMED Code Status Onset Date Resolution Date Notes Provider Name and Address Organization Details Recorded Time 44212559 Active 025 TOREY GRANADO [facility], L.L.CJada 10:58:00 Problem Notes None recorded. Procedures Surgical History Date Name Laterality Status Provider Name and Address Organization Details Recorded Time 08/12/2024 Date of Last Pap Smear completed TOREY GRANADO [facility], L.LDanuta 08/12/2024 10:50:02 Imaging Results None recorded. Procedure Notes None recorded. Medical Equipment None Reported. Allergies No known drug allergies Vitals Date Recorded Body height Body mass index (BMI) Body weight Body temperature Oxygen saturation Oxygen saturation in Arterial blood by Pulse oximetry Heart rate Systolic And Diastolic Provider Name and Address Organization Details Last Updated DateTime 5 165.1 cm 26.5 kg/m2 44480.1 9 g 98.4 [degF] 99 % 99 % 90 /min 118/80 mm[Hg] TOREY GRANADO [facility], L.L.CJada 14:28:24 Date Recorded Body height Body mass index (BMI) Body weight Body temperature Heart rate Systolic And Diastolic Provider Name and Address Organization Details Last Updated DateTime 5 165.1 cm 26.1 kg/m2 17373 g 97.7 [degF] 88 /min 120/70 mm[Hg] TOREY GRANADO [facility], L.L.CJada 5 14:42:02 Date Recorded Body height Body temperature Oxygen saturation Oxygen saturation in Arterial blood by Pulse oximetry Heart rate Body mass index (BMI) Body weight Systolic And Diastolic Provider Name and Address Organization Details Last Updated DateTime 5 165.1 cm 97.7 [degF] 99 % 99 % 79 /min 26.3 kg/m2 26358.5 9 g 115/70 mm[Hg] TOREY HA [facility] 5 14:54:36 Date Recorded Body height Body mass index (BMI) Body weight Body temperature Oxygen saturation Oxygen saturation in Arterial blood by Pulse oximetry Heart rate Systolic And Diastolic Provider Name and Address Organization Details Last Updated DateTime 165.1 cm 26.6 kg/m2 14253.7 8 g 97.7 [degF] 98 % 98 % 97 /min 120/80 mm[Hg] TOREY GRANADO [facility] 15:44:53 Social History None recorded. Functional Status None recorded. Mental Status None recorded. Family History Relationship Description Onset Age of this Age Resolved Age Notes LastModified by Organization Details LastModified Time Mother Anemia [email or web address] Not availabl e 08/10/2024 11:04:12 Mother Heart disease [email or web address] Not available 07/27 11:04:22 Maternal Grandfather Hypercholest erolemia [email or web address] Not available 07/27 11:04:51 Medical History Condition Response Coronary Artery Disease N Other N Gout N Kidney Stones N Blood Diseases N Hyperthyroidism N Breast Cancer N Blood Transfusion N Hypothyroidism N Depression N COPD N Lung Disease N Defects or Inherited Disease N Developmental or Behavioral Disorders N Breast Problem N Difficulty Swallowing N Anesthesia Complications N Anxiety Disorder N Meniere's disease N Muscle, Joint, or Bone Problems N [...] N Heart Disease N Pulmonary Embolism N Chronic Ear Infections N Pre-Eclampsia N Hypertension N Chicken Pox N Autism Spectrum Disorder (ASD) N Osteoporosis N Thrombophilias N Gynecological History Statement/Question Response Date of Last Pap Smear 08/12/2024 Obstetrics History GPAL:G 3 P 2 0 0 2 Type Value Full Term 2 Spontaneous 0 Living 2 Total 3 Past Encounters Encounter ID Performer Location Encounter Start Date Encounter Closed Date Diagnosis/Indication Diagnosis SNOMED-CT Code Diagnosis ICD10 Code Diagnosis Note [id number] Juana Larsen MD [facility] ([facility]) [address] [phone] 5 08/10/2024 10:42:42 08/10/2024 12:28:22 Gestation period, 34 weeks 96605126 Z3A.34 Fundal height is adequate but the uterus just palpates small. She is certain about her last. She was tracking it. Insufficie nt care 5841803335 109 O09.30 [id number] Juana Larsen MD [facility] ([facility]) [address] [place] [phone] 08/12/2024 10:12:22 08/12/2024 15:56:17 Gestation period, 35 weeks 26207552 Z3A.35 Multigravida 229401701 Z 34.83 31261318 Z33.1 Insufficie nt care 8633001148 109 O09.33 obi at 34 w. new ob at 35 wks. u/s scheduled during 36wks. [id number] Juana Larsen MD [facility] ([facility]) [address] [place] [id number] 5 08/17/2024 14:55:35 08/18/2024 12:29:47 [id number] Juana Larsen MD [facility] ([facility]) [address] [place] [phone] 08/24/2024 14:17:56 08/28/2024 07:06:03 Gestation period, 36 weeks 36813835 Z3A.36 Multigravida 744564275 Z 34.83 Insufficie nt care 0629840582 109 O09.33 growth 9 days behind expected SUSANNAH. Due to limited care we have no way of verifying if this is appropriat e growth. I recommend if she still in 2 more weeks we obtain a 3-week follow-up ultrasound . 08/24/2024 Atypical s quamous cells of undetermined significance on cervical Papanicolaou smear 268204379 R87.610 Patient was informed that her Pap smear was ASCUS with negative high risk HPV. I advised the patient to follow-up with a repeat Pap smear in 1 year. This is more frequent the guidelines suggest however I have seen some discrepanc ies with HPV viral detection. Patient expressed understand ing. 08/24/2024 [id number] Juana Larsen MD [facility] ([facility]) [address] [place] [address] 08/31/2024 14:20:29 09/01/2024 10:49:59 Gestation period, 37 weeks 77266816 Z3A.37 Multigravida 918945607 Z 34.83 Acute cystitis 76967737 N30.00 3+ leuk on dip today. pt would like to await culture before taking abx. [id number] Juana Larsen MD [facility] ([facility]) [address] [place] [phone] 09/07/2024 14:49:35 09/09/2024 07:48:16 Gestation period, 38 weeks 34867604 Z3A.38 Multigravida 368759079 Z 34.83 [id number] Juana Larsen MD [facility] ([facility]) [address] [place] [phone] 09/08/2024 14:46:28 09/09/2024 12:17:10 [id number] Juana Larsen MD [facility] ([facility]) [address] [place] [phone] 09/14/2024 15:21:18 09/16/2024 12:03:48 Gestation period, 39 weeks 62367704 Z3A.39 Multigravida 892990937 Z 34.83 Health Concerns Section Related Observation LastModified by Organization Detai ls LastModified Time None Recorded Concern Status LastModified by Organization Details LastModified Time None Recorded Advance Directives Directive None Recorded Payers Encounter Date Sequence Insurance Name Policy Number Policy Jackson Covered Member ID Jackson Member ID Guarantor Name 08/24/2024 1 *SELF PAY* Li ly Green 08/31/2024 1 *SELF PAY* Li ly Green 09/07/2024 1 *SELF PAY* Li ly Green 09/08/2024 1 *SELF PAY* Li ly Green 09/14/2024 1 *SELF PAY* Li ly Green Notes Date Note Type Note Provider Name and Address Organization Details Recorded Time 08/24/2024 text/html jr ob routineRep orted bypatient.Associated Symptoms:normal movement; no bleeding; no dysuria; no emesis; no edema; no dizziness;abdominal pain;cramping;contrac tions;nausea;constipa tion;headache Juana Larsen MD [address] [place] [address], [phone], [facility] 08/24/2024 17:45:25 08/31/2024 text/html ob routineRep orted bypatient.Associated Symptoms:normal movement; no bleeding; no dysuria; no emesis; no constipation; no edema; no dizziness; abdominal pain;cramping;contrac tions;nausea;headache Juana Larsen MD [address] [place] [address], [phone], [facility], LJadaLJadaC. 09/07/2024 14:57:53 09/07/2024 text/html ob routineRep orted bypatient.Associated Symptoms:normal movement; no bleeding; no dysuria; no nausea; no emesis; no edema; no headache; no dizziness;abdominal pain;cramping;contrac tions;constipation Juana Larsen MD [address] [place] [address], [phone], [facility] 09/07/2024 15:09:50 09/14/2024 text/html ob routineRep orted bypatient.Associated Symptoms:normal movement; no bleeding; no dysuria; no emesis; no dizziness;abdominal pain;cramping;contrac tions;nausea;constipa tion;edema;headache Juana Larsen MD [address] [place] [address], [phone], [facility].L.CJada 09/14/2024 16:14:47 OBGyn Episode Ob Episode Information Episode Created Date Number of Fetuses Patient Bloodtype Patient rh Status Prepregnancy Weight lbs Domestic Partner Domestic Partner Phone Father Name Finishing Range Feeder Status 08/11/19 25 1 CLOSED Fetus Data First Name Last Name Admitted to NICU Weight (g) Sex Living Outcome Pediatric Complications Fetus ID Race Codes Race Delivery Type 3373.36 3704 M Full Term 7926 VAGINAL Susannah Calculation Initial Susannah Date Initial Exam Date Initial Exam Provider Initial Ultrasound Date Last Menstrual Period Date Ultra Sound Weeks Gestation 0 Eighteen To Twenty Week Susannah Update Ultra Sound Date Fundal Height At Umbil Quickening Date Ultra Sound Latest Weeks Gestation Final Susannah Confirmed By Final Susannah Confirmed Date Final Susannah Date Ultra Sound Latest Days Gestation 0 0 Menstrual History Last Menstrual Date Menses Monthly On Bcp Conception Prior Menses Frequency Hcg Plus Date Menarche Onset Age Delivery Information Delivery Date Delivery Type Labor Anesthesia Weeks Gestation Incision Type Labor Labor Length Hrs Delivered By Post Complications Tubal Sterilization Discharge Date Comments 3 38 Discharge Information Feeding Method Contraceptive Method Maternal HG B and HCT Levels Ob Episode Information Episode Created Date Number of Fetuses Patient Bloodtype Patient rh Status Prepregnancy Weight lbs Domestic Partner Domestic Partner Phone Father Name Finishing Range Feeder Status 08/11/19 25 1 CLOSED Fetus Data First Name Last Name Admitted to NICU Weight (g) Sex Living Outcome Pediatric Complications Fetus ID Race Codes Race Delivery Type 3572.03 7 M Full Term 7925 VAGINAL Susannah Calculation Initial Susannah Date Initial Exam Date Initial Exam Provider Initial Ultrasound Date Last Menstrual Period Date Ultra Sound Weeks Gestation 0 Eighteen To Twenty Week Susannah Update Ultra Sound Date Fundal Height At Umbil Quickening Date Ultra Sound Latest Weeks Gestation Final Susannah Confirmed By Final Susannah Confirmed Date Final Susannah Date Ultra Sound Latest Days Gestation 0 0 Menstrual History Last Menstrual Date Menses Monthly On Bcp Conception Prior Menses Frequency Hcg Plus Date Menarche Onset Age Delivery Information Delivery Date Delivery Type Labor Anesthesia Weeks Gestation Incision Type Labor Labor Length Hrs Delivered By Post Complications Tubal Sterilization Discharge Date Comments 2 39 Discharge Information Feeding Method Contraceptive Method Maternal HG B and HCT Levels Ob Episode Information Episode Created Date Number of Fetuses Patient Bloodtype Patient rh Status Prepregnancy Weight lbs Domestic Partner Domestic Partner Phone Father Name Finishing Range Feeder Status 08/11/19 25 1 A Positive Juanpablo Castro r OPEN Fetus Data First Name Last Name [...] Ultra Sound Latest Days Gestation 0 0 Pre- Flowsheet Flowsheet Date 08/10/2024 [place] Score Blood Edema Fundus Height Fundus Units Glucose Ketones Leukocytes Nitrite Labor Signs Protein Cervic Dilation Cervic Effacement Cervic Station 31 cm none 2+ 1+ Type Weight in lbs Pre/Post Dialysis Refused Weight 155.459644642237 BP Diastolic BP Location Tested BP Systolic BP Type 78 130 Fetus Heart Rate Present A 145 Fetus Movement A Yes Comments Both previous pregnancies pt . was anemic. Flowsheet Date 08/12/2024 [place] Score Blood Edema Fundus Height Fundus Units Glucose Ketones Leukocytes Nitrite Labor Signs Protein Cervic Dilation Cervic Effacement Cervic Station 34 cm Type Weight in lbs Pre/Post Dialysis Refused Weight 156.144289133177 BP Diastolic BP Location Tested BP Systolic [...] Weight in lbs Pre/Post Dialysis Refused Weight 159.291226099590 BP Diastolic BP Location Tested BP Systolic [...] Weight in lbs Pre/Post Dialysis Refused Weight 157.949536453041 BP Diastolic BP Location Tested BP Systolic [...] Weight in lbs Pre/Post Dialysis Refused Weight 158.505560266223 BP Diastolic BP Location Tested BP Systolic [...] Weight in lbs Pre/Post Dialysis Refused Weight 160.053982800556 BP Diastolic BP Location Tested BP Systolic [...] At Estimated Date of Delivery false Thalassemia (Estonian, Indonesian, Mediterranean, Or Background): MCV < 80 false Neural Tube Defect (Meningom yelocele, Spina Bifida, Or Anencephaly) false Congenital Heart Defect false Down Syndrome false Ryan-Sachs (eg, Caodaism, Cajun , Djiboutian-Queen Anne) false Siva Disease false Sickle Cell Disease Or Trait () false Hemophilia Or Other Blood Disorders true anamia. Pt. had low iron the last 2 . Muscular Dystrophy false Cystic Fibrosis false Lape[place]'s Chorea false Intellectual Disability/Autism false If Yes, [...]
[2024-09-21] MEDS: PRENATAL VIT NO.130/IRON/FOLIC 1 EACH TABLET PO (09:39)
[2024-09-21] MEDS: docusate sodium 100 mg Capsule PO (09:39)
[2024-09-21] MEDS: lanolin oint 7 gm 1 APPLIC TOPICAL (13:58)
[2024-09-21] MEDS: acetaminophen 325 mg Tablet 650 MG PO (13:58)
[2024-09-21] MEDS: ibuprofen 800 mg tablet PO ×2 (15:42→20:03)
[2024-09-21 16:38] LABS: Hematocrit 32.4 % (36-47); Mean Corpuscular HGB Conc 32.1 g/dL (30-55); Mean Corpuscular Hemoglobin 28.2 pg (27-33); Mean Corpuscular Volume 87.8 fl (85-98); Mean Platelet Volume 10.2 fL (7.4-10.4); Platelet Count 214 10^3/cmm (157-399); Red Blood Count 3.69 10^6/uL (3.85-5.65); Red Cell Distribution Width 20.3 % (12.1-15.1); White Blood Count 9.28 10^3/uL (3.29-11.43)
[2024-09-22 03:55] VITALS: BP 130/77; PULSE 91; RESP 15; TEMP 36.6; O2SAT 98
[2024-09-22] MEDS: docusate sodium 100 mg Capsule PO (08:36)
[2024-09-22] MEDS: ibuprofen 800 mg tablet PO (08:36)
[2024-09-22] MEDS: PRENATAL VIT NO.130/IRON/FOLIC 1 EACH TABLET PO (08:36)
[2024-09-22 09:16] VITALS: BP 105/64; PULSE 80; RESP 18; TEMP 36.6; O2SAT 99
--- NOTE | 2024-09-22 12:29 | PM.DCS ---
Discharge Providers Date of Admission: 09/21/24 03:30 Date of Discharge: September 22, 2024 Attending Provider at Admission: Juana Larsen MD Attending Provider at Discharge: Juana Larsen MD Reason for Visit Reason for Visit: CTX Hospital Course Hospital Course This is a 29-year-old G3 now P3 who was admitted to labor and delivery in active labor at 39 weeks 5 days gestation. She had late onset care beginning at approximately 34 weeks gestation. She did not have time to have an epidural. She had a normal spontaneous vaginal delivery of a viable female . Mother and infant were doing well after delivery. Mother was ambulating, tolerating a regular diet, had decreased vaginal bleeding and was comfortable with discharge home. Physical Exam Narrative: Alert and oriented, sitting up in bed holding the infant, heart regular rate and rhythm, lungs clear to auscultation bilaterally, abdomen is soft and nontender, fundus is firm, extremities have no edema and no calf tenderness Discharge Data Studies Completed and Pending Laboratory Results WBC 9.28 10^3/uL (3.29-11.43) 09/21/24 16:15 RBC 3.69 10^6/uL (3.85-5.65) L 09/21/24 16:15 Hgb 10.40 g/dL (11.27-16.99) L 09/21/24 16:15 Hct 32.4 % (36-47) L 09/21/24 16:15 MCV 87.8 fl (85-98) 09/21/24 16:15 MCH 28.2 pg (27-33) 09/21/24 16:15 MCHC 32.1 g/dL (30-55) 09/21/24 16:15 RDW 20.3 % (12.1-15.1) H 09/21/24 16:15 Plt Count 214 10^3/cmm (157-399) 09/21/24 16:15 MPV 10.2 fL (7.4-10.4) 09/21/24 16:15 Neut % (Auto) 59.6 % 09/21/24 03:28 Lymph % (Auto) 26.9 % 09/21/24 03:28 Glades % (Auto) 10.2 % 09/21/24 03:28 Eos % (Auto) 1.5 % 09/21/24 03:28 Baso % (Auto) 0.5 % 09/21/24 03:28 Neut # (Auto) 4.74 10^3/uL (1.8-7.7) 09/21/24 03:28 Lymph # (Auto) 2.1 10^3/uL (0.8-4.8) 09/21/24 03:28 Glades # (Auto) 0.8 10^3/uL (0.2-0.9) 09/21/24 03:28 Eos # (Auto) 0.1 10^3/uL (0.0-0.8) 09/21/24 03:28 Baso # (Auto) 0.0 10^3/uL (0.0-0.1) 09/21/24 03:28 Nucleated RBC % (auto) 0 % 09/21/24 03:28 Nucleated RBCs # 0.0 /100WBC 09/21/24 03:28 Blood Type A Positive 09/21/24 03:28 Rho(D) Type Rh positive 09/21/24 03:28 Antibody Screen Negative 09/21/24 03:28 Vitals Last Vital Signs Temp 98 F 09/22/24 09:16 Pulse 80 09/22/24 09:16 Resp 18 09/22/24 09:16 BP 105/64 09/22/24 09:16 Pulse Ox 99 09/22/24 09:16 O2 Del Method Room Air 09/22/24 09:16 Discharge Plan Discharge Patient Disposition: Home Condition: Stable Prescriptions: Continued 1 mg Tablet 1 tab PO DAILY Discharge Orders: Discharge Order (Routine); Ordered 09/22/24 Ordered By: Juana Larsen Referrals: Juana Larsen MD [Physician, Family Practice] - 11/03/24 11:00 am Discharge Diet: Usual diet Discharge Activity: Limit activity as instructed Patient Instructions: Depression (DC), Opioid Safety (DC), Preeclampsia and Eclampsia After Delivery (GEN), Hemorrhage (DC), OB Discharge Report, OB Food/Drug Interaction Guide, OB Care at Home, Opioid Safety, OB Vaginal Deliveries, Abnormal Bleeding Activity Restrictions/Additional Instructions: Nothing per vagina for 6 weeks Discharge Attestations Time Spent in Discharge Care*: less than 30 min Quality Metrics Clinical Quality Measures [ No reported AMI, CVA or VTE this stay] Coding Level of Care Code Acute Code for Chg Fwd
[2024-09-22 13:30] VITALS: BP 128/85; PULSE 83; RESP 16; TEMP 36.6; O2SAT 98
== END 2024-09-22 13:30 | disposition home or self-care (01) | DRG 807 ==
LOC: OPOB 08:25 → OBGYN 08:25
PROVIDERS: Admitting Provider Family Medicine; Visit Provider Family Medicine
DX: O80 Encounter for full-term uncomplicated delivery (principal); Z37.0 Single live birth; Z3A.39 39 weeks gestation of pregnancy
CPT/HCPCS: 36415; 59025; 59409; 85025; 85027; 86850; 86900; 99211; J2590; J7120; J9999